=== PATIENT | female | born 1995 | race American Indian/Alaskan Native ===

== ENCOUNTER 2018-08-10 13:45 | Outpatient (CLI) | payer BC ==
--- NOTE | 2018-08-10 14:23 | XRay Report ---
LEFT KNEE, 3 views: History: Unilateral primary osteoarthritis. The bony architecture is intact without evidence of fracture or dislocation. The joint space is unremarkable. No significant soft tissue abnormality is seen. IMPRESSION: Normal left knee.
== END 2018-08-10 13:46 | disposition home or self-care (01) ==
LOC: XRAY 13:45
DX: M17.12 Unilateral primary osteoarthritis, left knee (principal)

== ENCOUNTER 2020-11-25 20:15 | Emergency (ER) | payer BC, OTHER ==
[2020-11-25 22:22] VITALS: BP 122/77
[2020-11-25] MEDS ORDERED: METOCLOPRAMIDE 10 MG TAB PO ONE (23:32)
[2020-11-25] MEDS ORDERED: diphenhydrAMINE 25 MG CAP PO ONE (23:32)
[2020-11-25] MEDS ORDERED: ACETAMINOPHEN 500 MG TAB PO ONE (23:32)
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
== END 2020-11-26 01:16 | disposition home or self-care (01) ==
LOC: ED 20:15
DX: S16.1XXA Strain of muscle, fascia and tendon at neck level, initial encounter (principal); Z79.899 Other long term (current) drug therapy; V49.49XA Driver injured in collision with other motor vehicles in traffic accident, initial encounter; Y93.89 Activity, other specified; Y92.488 Other paved roadways as the place of occurrence of the external cause; Y99.8 Other external cause status
CPT/HCPCS: 72040; 99283